=== PATIENT | male | born 1955 | race Caucasian/White ===

== ENCOUNTER 2017-07-23 10:00 | Outpatient (RCR) | payer OTHER | END 2017-07-25 | LOC: PT 10:00 | DX: M54.5 Low back pain (principal); M62.81 Muscle weakness (generalized) ==

== ENCOUNTER 2020-08-08 06:34 | Observation (INO) | payer MEDICARE, OTHER ==
[2020-08-05 11:32] LABS: BASOPHILS % 0.5 % (0.0-1.0); EOSINOPHILS # (AUTO) 0.2 (0.0-0.4); EOSINOPHILS % 2.4 % (0.0-6.0); HEMATOCRIT 46.6 % (38.2-49.6); HEMOGLOBIN 15.9 g/dL (14.0-18.0); LYMPHOCYTES # (AUTO) 1.8 (1.0-3.2); LYMPHOCYTES % 28.8 % (18.0-39.1); MEAN CORPUSCULAR HEMOGLOBIN 28.8 pg (28-32); MEAN CORPUSCULAR HGB CONC 34.1 g/dL (31-35); MEAN CORPUSCULAR VOLUME 84.3 fL (81-99); MONOCYTES # (AUTO) 0.6 (0.2-0.8); NEUTROPHILS # (AUTO) 3.7 (2.1-6.9); NEUTROPHILS % 57.8 % (38.7-80.0); PLATELET COUNT 228 x10e3/uL (140-360); RED BLOOD COUNT 5.53 x10e6/uL (4.3-5.7); RED CELL DISTRIBUTION WIDTH 13.8 % (11.7-14.4)
[2020-08-05 11:45] LABS: INR 1.18; PROTHROMBIN TIME 15.8 seconds (11.9-14.5)
[2020-08-05 11:46] LABS: PARTIAL THROMBOPLASTIN TIME 43.7 seconds (23.8-35.5)
[2020-08-05 12:07] LABS: ANION GAP 13.1 mmol/L (8-16); BLOOD UREA NITROGEN 19 mg/dL (7-26); BUN/CREATININE RATIO 19 (6-25); CALCIUM 8.5 mg/dL (8.4-10.2); CARBON DIOXIDE 23 mmol/L (22-29); CHLORIDE 106 mmol/L (98-107); CREATININE, SERUM 1.01 mg/dL (0.72-1.25); EST GLOMERULAR FILTRATION RATE > 60 ML/MIN (60-); GLUCOSE 129 mg/dL (74-118); POTASSIUM 4.1 mmol/L (3.5-5.1); SODIUM 138 mmol/L (136-145)
[~2020-08-08] VITALS: Ht 180.3 cm; Wt 80.7 kg
[~2020-08-08 06:34] MED LIST: BASAGLAR K100 UNIT/1 SC; CRESTOR10 MG PO; LEVOTHYROXINE50 MCG PO; LISINOPRIL10 MG PO; METFORMIN HCL500 MG PO; NEXIUM20 MG PO; NOVOLOG MI100 UNIT/1 SC; OZEMPIC1 MG/0.75 SC; TESTOSTERO200 MG/1 M INJ
[2020-08-08] MEDS ORDERED: VANCOMYCIN HCL 1 GM VIAL ONE (06:50)
[2020-08-08] MEDS ORDERED: BUPIVACAINE 0.25%/EPI 30ML SDV INJ ONE (06:50)
[2020-08-08] MEDS ORDERED: THROMBIN FOR SOLN 5,000 UNIT VIAL ONE (06:50)
[2020-08-08] MEDS ORDERED: ACETAMINOPHEN 1000 MG/100 ML 100 ML IV ONE (07:00)
[2020-08-08] MEDS ORDERED: IBUPROFEN 800MG/ 200ML 200 ML IV ONE (07:01)
[2020-08-08] MEDS ORDERED: LIDOCAINE HCL (LTA) 4 ML SOLN ONE (07:01)
[2020-08-08] MEDS ORDERED: CEFAZOLIN SOD 1 GM/NS 50ML 100 ML IV ONE (07:20)
[2020-08-08] MEDS ORDERED: HYDROMORPHONE 2MG/ML 2 MG/ML ML IV PRN ×2 (10:15)
[2020-08-08] MEDS ORDERED: OXYCODONE/ACETAMINOPHEN 5-325 1 EACH TABLET PO PRN (10:15)
[2020-08-08] MEDS ORDERED: ONDANSETRON HCL INJ 2MG/ML 2ML 2 MG/ML VIAL IV PRN (10:15)
[2020-08-08] MEDS ORDERED: CEPACOL SORE THROAT LOZENGES PO PRN (10:15)
[2020-08-08] MEDS ORDERED: DEXTROSE 50% SYRINGE 50 ML IV PRN ×2 (10:15→12:00)
[2020-08-08] MEDS ORDERED: ACETAMINOPHEN 325 MG TAB PO PRN (10:15)
[2020-08-08] MEDS ORDERED: MAGNESIUM/ALUMINUM/SIMETHICONE 30 ML UDC PO PRN (10:15)
[2020-08-08] MEDS ORDERED: MORPHINE SULFATE 5 MG/ML VIAL IM PRN (10:15)
[2020-08-08] MEDS ORDERED: CARISOPRODOL 350 MG TAB PO PRN (10:15)
[2020-08-08] MEDS ORDERED: PROMETHAZINE HCL (IM) 25 MG/ML VIAL IM PRN (10:15)
[2020-08-08] MEDS ORDERED: HYDROCODON-ACE1 EA12 PO (10:22)
[2020-08-08] MEDS ORDERED: INSULIN ASPART 70/30 100 UNITS/ML VIAL SC SCH (11:30)
[2020-08-08 12:00] VITALS: BP 131/85
[2020-08-08 12:36] VITALS: BP 131/85
[2020-08-08] MEDS ORDERED: ONDANSETRON HCL INJ 2MG/ML 2ML 2 MG/ML VIAL ONE (13:48)
[2020-08-08] MEDS ORDERED: LIDOCAINE HCL 2% JELLY 5 ML TUBE ONE (13:48)
[2020-08-08] MEDS ORDERED: GLYCOPYRROLATE INJ 0.2 MG/ML VIAL ONE (13:48)
[2020-08-08] MEDS ORDERED: DEXAMETHASONE SOD PHOS INJ 4 MG/ML VIAL ONE (13:48)
[2020-08-08] MEDS ORDERED: LIDOCAINE HCL 2% LOCAL INJ 5 ML SDV VIAL INJ ONE (13:48)
[2020-08-08] MEDS ORDERED: ROCURONIUM BROMIDE 10 MG/ML 5ML VIAL IV ONE (13:48)
[2020-08-08] MEDS ORDERED: NEOSTIGMINE 1 MG/ML 10ML VIAL ONE (13:48)
[2020-08-08] MEDS ORDERED: SEVOFLURANE INHAL SOLN 250 ML PEN BTL ONE (13:48)
[2020-08-08] MEDS ORDERED: PROPOFOL IV EMULSION 10 MG/ML 20 ML VIAL ONE (13:48)
[2020-08-08] MEDS: LACTATED RINGER'S 1,000 ML IV SCH ×3 (15:17→20:35)
[2020-08-08 16:37] VITALS: BP 134/90
[2020-08-08] MEDS: METFORMIN HCL 500 MG TAB PO SCH (17:01)
[2020-08-08] MEDS: CEFAZOLIN SOD 1 GM/NS 50ML 50 ML IV SCH ×2 (17:02→23:51)
[2020-08-08] MEDS: INSULIN LISPRO 100 UNIT/1 ML 3ML VIAL SQ SCH ×2 (17:04→20:30)
[2020-08-08 20:42] VITALS: BP 144/85
[2020-08-08] MEDS ORDERED: SIMVASTATIN 20 MG TAB PO SCH (21:00)
[2020-08-08] MEDS ORDERED: LISINOPRIL 10 MG TAB PO SCH (21:00)
[2020-08-08] MEDS ORDERED: ZOLPIDEM TARTRATE 5 MG TAB PO PRN (21:00)
[2020-08-08] MEDS ORDERED: [UNRECOGNIZED DRUG - OTHER] SC SCH (21:00)
[2020-08-08] MEDS ORDERED: INSULIN GLARGINE 100 UNITS/ML VIAL SQ SCH (21:00)
[2020-08-08] MEDS ORDERED: INSULIN GLARGINE HUM REC ANLOG 55 UNIT SC SCH (21:00)
[2020-08-09] VITALS: BP 121/68
[2020-08-09 04:00] VITALS: BP_SYST 119; BP_SYST 144; BP_DIAS 66; BP_DIAS 85
[2020-08-09] MEDS ORDERED: LEVOTHYROXINE SODIUM 50 MCG TAB PO SCH (06:00)
[2020-08-09] MEDS: METFORMIN HCL 500 MG TAB PO SCH (08:11)
[2020-08-09] MEDS: CEFAZOLIN SOD 1 GM/NS 50ML 50 ML IV SCH (08:11)
[2020-08-09] MEDS: INSULIN LISPRO 100 UNIT/1 ML 3ML VIAL SQ SCH (08:13)
[2020-08-09 08:19] VITALS: BP 131/91
[2020-08-09] MEDS ORDERED: INSULIN GLARGINE HUM REC ANLOG 20 UNIT SC SCH (09:00)
[2020-08-09] MEDS ORDERED: PANTOPRAZOLE SOD 40 MG TABEC PO SCH (09:00)
[2020-08-09] MEDS ORDERED: INSULIN GLARGINE 100 UNITS/ML VIAL SQ SCH (09:00)
[2020-08-09] MEDS ORDERED: SIMVASTATIN 40 MG TAB PO SCH (09:00)
[2020-08-09] MEDS ORDERED: [UNRECOGNIZED DRUG - OTHER] SC SCH (09:00)
[2020-08-09 09:10] VITALS: BP 131/91
[2020-08-15] MEDS ORDERED: (Semaglutide (Ozempic) 1 MG) SC SCH (09:00)
== END 2020-08-09 10:20 | disposition home or self-care (01) ==
LOC: OR 06:34 → PACU V 10:17 → MED/SURG 11:29
PROVIDERS: ADMIT Neurological Surgery; ATTEND Neurological Surgery
DX: M50.121 Cervical disc disorder at C4-C5 level with radiculopathy (principal); M48.02 Spinal stenosis, cervical region; M43.12 Spondylolisthesis, cervical region; I10 Essential (primary) hypertension; E78.00 Pure hypercholesterolemia, unspecified; E11.9 Type 2 diabetes mellitus without complications; E03.9 Hypothyroidism, unspecified; Z79.4 Long term (current) use of insulin; Z01.810 Encounter for preprocedural cardiovascular examination; Z01.812 Encounter for preprocedural laboratory examination; Z01.818 Encounter for other preprocedural examination; Z20.822 Contact with and (suspected) exposure to COVID-19
CPT/HCPCS: 36415; 71046; 72040; 77003; 80048; 82948; 85025; 85610; 85730; 86850; 86900; 88304; 93005; C1713; G0378; J0690; J1100; J1815; J2001; J2405; J2710; J3370; J7121; U0002

== ENCOUNTER → 2020-09-02 | Outpatient (CLI) | payer MEDICARE, OTHER ==
[~2020-09-02] MED LIST changes: +HYDROCODON-ACE1 EA12 PO
== END ==
LOC: RAD 10:20
PROVIDERS: ATTEND Neurological Surgery
DX: M50.20 Other cervical disc displacement, unspecified cervical region (principal); M43.22 Fusion of spine, cervical region
CPT/HCPCS: 72050

== ENCOUNTER 2020-10-28 07:30 | Observation (INO) | payer MEDICARE, OTHER ==
[2020-10-24 14:12] LABS: BASOPHILS # (AUTO) 0.1 (0.0-0.1); BASOPHILS % 0.8 % (0.0-1.0); EOSINOPHILS # (AUTO) 0.5 (0.0-0.4); EOSINOPHILS % 5.1 % (0.0-6.0); HEMOGLOBIN 15.5 g/dL (14.0-18.0); LYMPHOCYTES # (AUTO) 2.9 (1.0-3.2); LYMPHOCYTES % 27.7 % (18.0-39.1); MEAN CORPUSCULAR HEMOGLOBIN 29.1 pg (28-32); MEAN CORPUSCULAR HGB CONC 33.7 g/dL (31-35); MEAN CORPUSCULAR VOLUME 86.5 fL (81-99); MONOCYTES # (AUTO) 1.1 (0.2-0.8); MONOCYTES % 10.8 % (4.4-11.3); NEUTROPHILS # (AUTO) 5.7 (2.1-6.9); PLATELET COUNT 277 x10e3/uL (140-360); RED BLOOD COUNT 5.32 x10e6/uL (4.3-5.7); RED CELL DISTRIBUTION WIDTH 14.6 % (11.7-14.4)
[2020-10-24 14:28] LABS: ANION GAP 16.8 mmol/L (8-16); BLOOD UREA NITROGEN 14 mg/dL (7-26); BUN/CREATININE RATIO 13 (6-25); CALCIUM 9.5 mg/dL (8.4-10.2); CARBON DIOXIDE 25 mmol/L (22-29); CHLORIDE 103 mmol/L (98-107); CREATININE, SERUM 1.09 mg/dL (0.72-1.25); EST GLOMERULAR FILTRATION RATE > 60 ML/MIN (60-); GLUCOSE 93 mg/dL (74-118); POTASSIUM 4.8 mmol/L (3.5-5.1); SODIUM 140 mmol/L (136-145)
[~2020-10-28] VITALS: Ht 180.3 cm; Wt 122.5 kg
[~2020-10-28 07:30] MED LIST changes: +MULTI-VITAMIN1 EACH PO
[2020-10-28] MEDS ORDERED: ROPIVACAINE 246.25 MG, EPINEPHRINE HCL 1:1000 1ML 0.5 MG, CLONIDINE HCL 0.08 MG, KETORO... INJ ONE ×5 (08:00)
[2020-10-28] MEDS ORDERED: DEXAMETHASONE SOD PHOS 10 MG/1 ML VIAL ONE (08:49)
[2020-10-28] MEDS ORDERED: GABAPENTIN 300 MG CAP ONE (08:49)
[2020-10-28] MEDS ORDERED: CELECOXIB 200 MG CAP ONE (08:49)
[2020-10-28] MEDS ORDERED: CEFAZOLIN SOD 1 GM/NS 50ML 100 ML IV ONE (08:49)
[2020-10-28] MEDS ORDERED: SODIUM CHLORIDE 0.9% 500ML 500 ML ONE (09:22)
[2020-10-28] MEDS ORDERED: VANCOMYCIN HCL 1,000 MG ONE (09:22)
[2020-10-28] MEDS ORDERED: TRANEXAMIC ACID 1,000 MG/10 ML ML ONE (09:22)
[2020-10-28] MEDS ORDERED: SODIUM CHLORIDE 0.9% 1000ML 1,000 ML IV SCH (11:45)
[2020-10-28] MEDS ORDERED: ACETAMINOPHEN 650 MG SUPP PR PRN (11:45)
[2020-10-28] MEDS ORDERED: HYDROCODONE/APAP 7.5MG-325MG 1 EA TAB PO PRN (11:45)
[2020-10-28] MEDS ORDERED: DOCUSATE SODIUM 100 MG CAP PO PRN (11:45)
[2020-10-28] MEDS ORDERED: KETOROLAC TROMETHAMINE 30 MG/ML VIAL IV PRN (11:45)
[2020-10-28] MEDS ORDERED: DIPHENHYDRAMINE HCL INJ 50 MG/ML VIAL IV PRN (11:45)
[2020-10-28] MEDS ORDERED: ONDANSETRON HCL INJ 2MG/ML 2ML 2 MG/ML VIAL IV PRN (11:45)
[2020-10-28] MEDS ORDERED: HYDROCODONE/APAP 5MG-325MG TAB PO PRN (11:45)
[2020-10-28] MEDS ORDERED: PROPOFOL IV EMULSION 10 MG/ML 20 ML VIAL ONE (13:25)
[2020-10-28] MEDS ORDERED: ONDANSETRON HCL INJ 2MG/ML 2ML 2 MG/ML VIAL ONE (13:25)
[2020-10-28] MEDS ORDERED: SEVOFLURANE INHAL SOLN 250 ML PEN BTL ONE (13:25)
[2020-10-28] MEDS ORDERED: LIDOCAINE HCL 2% LOCAL INJ 5 ML SDV VIAL INJ ONE (13:25)
[2020-10-28 13:27] VITALS: BP 132/79
[2020-10-28] MEDS ORDERED: ACETAMINOPHEN 1000 MG/100 ML IV PRN (14:00)
[2020-10-28 15:16] LABS: BASOPHILS % 0.1 % (0.0-1.0); EOSINOPHILS % 0.1 % (0.0-6.0); HEMOGLOBIN 14.4 g/dL (14.0-18.0); LYMPHOCYTES # (AUTO) 0.6 (1.0-3.2); MEAN CORPUSCULAR HEMOGLOBIN 28.1 pg (28-32); MEAN CORPUSCULAR HGB CONC 33.5 g/dL (31-35); MEAN CORPUSCULAR VOLUME 83.8 fL (81-99); MONOCYTES # (AUTO) 0.2 (0.2-0.8); MONOCYTES % 1.1 % (4.4-11.3); NEUTROPHILS % 94.2 % (38.7-80.0); PLATELET COUNT 224 x10e3/uL (140-360); RED BLOOD COUNT 5.13 x10e6/uL (4.3-5.7); RED CELL DISTRIBUTION WIDTH 14.5 % (11.7-14.4)
[2020-10-28 15:43] LABS: ANION GAP 15.6 mmol/L (8-16); CREATININE, SERUM 1.33 mg/dL (0.72-1.25); POTASSIUM 4.6 mmol/L (3.5-5.1)
[2020-10-28 16:00] VITALS: BP 132/79
[2020-10-28] MEDS ORDERED: SODIUM CHLORIDE 0.9% 50ML 50 ML ONE (16:31)
[2020-10-28] MEDS: CEFAZOLIN SOD 1 GM/NS 50ML 50 ML IV SCH (17:09)
[2020-10-28] MEDS: CELECOXIB 100 MG CAP PO SCH (17:09)
[2020-10-28] MEDS: ASPIRIN 325 MG TAB PO SCH (17:09)
[2020-10-28] MEDS: METFORMIN HCL 500 MG TAB PO SCH (17:15)
[2020-10-28] MEDS: INSULIN LISPRO 100 UNIT/1 ML 3ML VIAL SQ SCH ×2 (17:17→21:02)
[2020-10-28] MEDS ORDERED: ROPIVACAINE 0.5% 5 MG/ML 30 ML SDV ONE (19:29)
[2020-10-28] MEDS ORDERED: LIDOCAINE 2%/ EPINEPHRINE 20ML MDV ONE (19:29)
[2020-10-28] MEDS ORDERED: MIDAZOLAM HCL 2 MG/2 ML VIAL ONE (19:44)
[2020-10-28] MEDS ORDERED: FENTANYL CITRATE/PF 100MCG/2 ML INJ ONE (19:44)
[2020-10-28 20:00] VITALS: BP 130/77
[2020-10-28] MEDS ORDERED: INSULIN GLARGINE HUM REC ANLOG 55 UNIT SC SCH (21:00)
[2020-10-28] MEDS ORDERED: [UNRECOGNIZED DRUG - OTHER] SC SCH (21:00)
[2020-10-28] MEDS ORDERED: INSULIN ASPART 70/30 100 UNITS/ML VIAL SC SCH (21:00)
[2020-10-28] MEDS ORDERED: ZOLPIDEM TARTRATE 5 MG TAB PO PRN (21:00)
[2020-10-28] MEDS ORDERED: INSULIN GLARGINE 100 UNITS/ML VIAL SQ SCH (21:00)
[2020-10-28] MEDS ORDERED: LISINOPRIL 10 MG TAB PO SCH (21:00)
[2020-10-28 21:05] VITALS: BP 130/77
[2020-10-28 23:53] VITALS: BP 91/48
[2020-10-29] MEDS: CEFAZOLIN SOD 1 GM/NS 50ML 50 ML IV SCH ×2 (02:04→10:15)
[2020-10-29 05:11] VITALS: BP 100/54
[2020-10-29 05:45] LABS: HEMATOCRIT 39.7 % (38.2-49.6); HEMOGLOBIN 13.5 g/dL (14.0-18.0)
[2020-10-29] MEDS ORDERED: LEVOTHYROXINE SODIUM 50 MCG TAB PO SCH (06:00)
[2020-10-29] MEDS ORDERED: PANTOPRAZOLE SOD 40 MG TABEC PO SCH (07:30)
[2020-10-29 08:00] VITALS: BP 126/79
[2020-10-29] MEDS: CELECOXIB 100 MG CAP PO SCH (08:22)
[2020-10-29] MEDS: ASPIRIN 325 MG TAB PO SCH (08:22)
[2020-10-29] MEDS: METFORMIN HCL 500 MG TAB PO SCH (08:22)
[2020-10-29] MEDS: INSULIN LISPRO 100 UNIT/1 ML 3ML VIAL SQ SCH ×2 (08:38→12:16)
[2020-10-29] MEDS ORDERED: INSULIN GLARGINE HUM REC ANLOG 20 UNIT SC SCH (09:00)
[2020-10-29] MEDS ORDERED: MULTIVITAMINS/MINERALS TAB PO SCH (09:00)
[2020-10-29] MEDS ORDERED: [UNRECOGNIZED DRUG - OTHER] SC SCH (09:00)
[2020-10-29] MEDS ORDERED: INSULIN GLARGINE 100 UNITS/ML VIAL SQ SCH (09:00)
[2020-10-29] MEDS ORDERED: SIMVASTATIN 40 MG TAB PO SCH (09:00)
[2020-10-29 12:04] VITALS: BP 121/75
[2020-10-29] MEDS ORDERED: SIMVASTATIN 20 MG TAB PO SCH (21:00)
[2020-11-03] MEDS ORDERED: (Semaglutide (Ozempic) 1 MG) SC SCH (09:00)
== END 2020-10-29 12:32 | disposition home or self-care (01) ==
LOC: OR 07:30 → PACU V 11:47 → MED/SURG 13:14
PROVIDERS: ADMIT Specialist; ATTEND Specialist
DX: M17.11 Unilateral primary osteoarthritis, right knee (principal); E11.9 Type 2 diabetes mellitus without complications; I12.9 Hypertensive chronic kidney disease with stage 1 through stage 4 chronic kidney disease, or unspecified chronic kidney disease; E11.22 Type 2 diabetes mellitus with diabetic chronic kidney disease; N18.30 Chronic kidney disease, stage 3 unspecified; Z20.822 Contact with and (suspected) exposure to COVID-19; E03.9 Hypothyroidism, unspecified
CPT/HCPCS: 27447; 36415 ×3; 73560; 80048 ×2; 82948 ×2; 85014; 85018; 85025 ×2; 86850; 86900; 86920; 97110; 97116 ×2; 97161; C1713; G0378 ×2; J0171; J0690 ×2; J1100; J1815 ×2; J1885; J2001 ×2; J2250; J2405; J2704; J2795; J3010; J3370; J7040; S0164; U0002

== ENCOUNTER 2020-12-20 09:38 | Outpatient (RCR) | payer MEDICARE, OTHER | END 2020-12-23 | LOC: PT 09:38 | PROVIDERS: ATTEND Physician Assistant | DX: Z96.651 Presence of right artificial knee joint (principal); Z47.1 Aftercare following joint replacement surgery; M25.561 Pain in right knee; M62.81 Muscle weakness (generalized); M25.661 Stiffness of right knee, not elsewhere classified; M25.461 Effusion, right knee ==

== ENCOUNTER → 2021-01-22 | Outpatient (RCR) | payer MEDICARE, OTHER | LOC: PT 12-24 10:17 | PROVIDERS: ATTEND Physician Assistant | DX: Z47.1 Aftercare following joint replacement surgery (principal); Z96.651 Presence of right artificial knee joint ==

== ENCOUNTER 2021-02-07 07:54 | Outpatient (RCR) | payer MEDICARE, OTHER | END 2021-02-22 | LOC: PT 07:54 | PROVIDERS: ATTEND Physician Assistant | DX: Z47.1 Aftercare following joint replacement surgery (principal); Z96.651 Presence of right artificial knee joint ==

== ENCOUNTER → 2021-03-04 | Outpatient (CLI) | payer MEDICARE, OTHER | LOC: RAD 08:48 | PROVIDERS: ATTEND Neurological Surgery | DX: M50.20 Other cervical disc displacement, unspecified cervical region (principal); M43.22 Fusion of spine, cervical region | CPT/HCPCS: 72050 ==

== ENCOUNTER → 2024-09-27 | Outpatient (REF) | payer MEDICARE, OTHER ==
[~2024-09-27] MED LIST changes: +IOPAMIDOL 370 MG/ML 100 ML INFUS..BTL INJ ONE
[2024-09-27 09:50] LABS: CREATININE, SERUM 1.03 mg/dL (0.72-1.25)
== END ==
LOC: CT 08:31
PROVIDERS: ATTEND Surgery
DX: K43.9 Ventral hernia without obstruction or gangrene (principal)
CPT/HCPCS: 36415; 74177; 82565; 84520; Q9967